=== PATIENT | male | born 1985 | race Caucasian/White ===

== ENCOUNTER 2019-02-14 04:45 | Emergency (ER) | payer MEDICAID ==
[~2019-02-14] VITALS: Ht 175.3 cm; Wt 77.0 kg
[2019-02-14] MEDS ORDERED: KETOROLAC 30MG/ML VIAL IV STA (06:43)
[2019-02-14 07:00] VITALS: BP 110/70
== END 2019-02-14 07:19 | disposition home or self-care (01) ==
LOC: ER 05:05
DX: M25.531 Pain in right wrist (principal); M79.601 Pain in right arm; S49.91XA Unspecified injury of right shoulder and upper arm, initial encounter; Y35.893A Legal intervention involving other specified means, suspect injured, initial encounter; Y93.89 Activity, other specified; Y92.9 Unspecified place or not applicable
CPT/HCPCS: 73090; 73110; 73130; 96374; 99283; J1885; A4565

== ENCOUNTER 2020-10-03 06:03 | Emergency (ER) | payer MEDICAID ==
[~2020-10-03] VITALS: Ht 182.9 cm; Wt 88.0 kg
[2020-10-03 06:40] VITALS: BP 157/100
== END 2020-10-03 08:56 | disposition home or self-care (01) ==
LOC: ER 06:03
DX: R46.2 Strange and inexplicable behavior (principal); I10 Essential (primary) hypertension
CPT/HCPCS: 99283

== ENCOUNTER 2020-10-25 12:18 | Emergency (ER) | payer MEDICAID ==
[~2020-10-25] VITALS: Ht 175.3 cm; Wt 86.5 kg
[2020-10-25 15:31] VITALS: BP 132/84
== END 2020-10-25 15:30 | disposition home or self-care (01) ==
LOC: ER 12:18
DX: F15.10 Other stimulant abuse, uncomplicated (principal); I10 Essential (primary) hypertension
CPT/HCPCS: 99283; Z7610; A4315